=== PATIENT | female | born 1990 | race African-American/Black ===

== ENCOUNTER 2018-03-24 08:59 | Emergency (ER) | payer MEDICAID ==
[~2018-03-24] VITALS: Ht 170.2 cm; Wt 117.0 kg
[2018-03-24 09:07] VITALS: BP 128/71
[2018-03-24] MEDS ORDERED: LIDOCAINE VISCOUS 2% 15ML UD PO ONE (10:00)
== END 2018-03-24 10:16 | disposition home or self-care (01) ==
LOC: ER 08:59
DX: J03.90 Acute tonsillitis, unspecified (principal)

== ENCOUNTER 2018-03-30 08:13 | Emergency (ER) | payer MEDICAID ==
[~2018-03-30] VITALS: Ht 167.6 cm; Wt 111.6 kg
[2018-03-30 08:23] VITALS: BP 130/74
== END 2018-03-30 09:49 | disposition home or self-care (01) ==
LOC: ER 08:13
DX: J03.90 Acute tonsillitis, unspecified (principal)